=== PATIENT | female | born 1940 | race Caucasian/White ===

== ENCOUNTER 2021-02-21 08:10 | Outpatient (RCR) | payer MEDICARE, MEDICAID, SELFPAY | END 2021-03-16 23:59 | disposition home or self-care (01) | LOC: CHSWOUND 08:10 | PROVIDERS: PCP Family Medicine | DX: L89.620 Pressure ulcer of left heel, unstageable (principal); L89.610 Pressure ulcer of right heel, unstageable; I73.9 Peripheral vascular disease, unspecified; I25.10 Atherosclerotic heart disease of native coronary artery without angina pectoris; I10 Essential (primary) hypertension; D64.9 Anemia, unspecified; J44.9 Chronic obstructive pulmonary disease, unspecified; E78.2 Mixed hyperlipidemia; M81.0 Age-related osteoporosis without current pathological fracture; N28.9 Disorder of kidney and ureter, unspecified; R09.89 Other specified symptoms and signs involving the circulatory and respiratory systems; Z95.1 Presence of aortocoronary bypass graft | CPT/HCPCS: 11042; 87070; 87077; 87186; 87205; 99214; G0463 ==

== ENCOUNTER 2021-02-21 10:14 | Outpatient (CLI) | payer MEDICARE, MEDICAID, SELFPAY ==
--- NOTE | ~2021-02-21 | US_ITS ---
EXAMINATION: US venous doppler LE DATE: 02/21/2021 11:21 INDICATION: Right lower limb nonhealing wounds and edema. Venous reflux. TECHNIQUE: Grayscale ultrasound images without and with compression and Doppler ultrasound images of the bilateral lower extremity veins were obtained. COMPARISON: None. FINDINGS: Right lower limb: The visualized portions of right common femoral vein, profunda (deep) femoral vein, femoral vein, pop liteal vein, posterior tibial veins, peroneal veins, gastrocnemius vein and greater saphenous vein ou tflow are patent. Right standing venous mapping: reflux seconds duration; vein size. Greater saphenous origin: 0 seconds; 7.8 mm. Greater saphenous above knee :---0 seconds; 3.0 mm. Greater saphenous and lesser saphenous veins below the knee were unable to be visualized due to h[place] ging material. Left lower limb: The visualized portions of left common femoral vein, profunda femoral vein, femoral vein, popliteal v ein, posterior tibial veins, peroneal veins, gastrocnemius vein and greater saphenous vein outflow ar e patent. Left standing venous mapping: reflux seconds duration; vein size. Greater saphenous vein not visualized due to reported prior saphenous vein graft harvest. Lesser saphenous proximally:------ 0 seconds; 8.9 mm. Lesser saphenous mid : 0 seconds; 2.0 mm. Lesser saphenous distal : 0 seconds; 2.1 mm. IMPRESSION: 1. No deep venous thrombosis in either lower limb. 2. No evident venous reflux in the right greater saphenous vein at the thigh. The more distal right g reater saphenous vein and lesser saphenous vein at the calf are not visualized due to bandaging mater ial and the left greater saphenous vein has been harvested. Reviewed, dictated and finalized at location H. ARCH LABORATORY MANAGER IMPRESSION: 1. No deep venous thrombosis in either lower limb. 2. No evident venous reflux in the right greater saphenous vein at the thigh. T he more distal right greater saphenous vein and lesser saphenous vein at the ca lf are not visualized due to bandaging material and the left greater saphenous vein has been harvested.
--- NOTE | ~2021-02-21 | XR_ITS ---
XR heel RT min 2V DATE: 02/21/2021 11:31 INDICATION: Nonhealing plantar wounds and edema for 3 months TECHNIQUE: Axial and lateral views COMPARISON: None FINDINGS: There is slight plantar calcaneal enthesopathy. No fracture or dislocation or bone destruction of the calcaneus. No radiopaque soft tissue foreign body or subcutaneous emphysema. IMPRESSION: Slight plantar calcaneal enthesopathy Reviewed, dictated and finalized at location A. GEMENT RECRUITER
--- NOTE | ~2021-02-21 | US_ITS ---
EXAMINATION: US arterial ankle brachial ind DATE: 02/21/2021 11:21 INDICATION: Nonhealing right lower limb movements and edema TECHNIQUE: Segmental pressures and plethysmographic and Doppler waveforms of the brachial and lower e xtremity arteries were obtained. COMPARISON: None. FINDINGS: Right and left brachial artery pressures of 117 mm Hg and 124 mm Hg, respectively, are concordant (no rmal difference <= 30 mmHg). The right ankle-brachial index (REBECCA) is 0.89 (normal >= 0.9-1.0). The right great toe-brachial index (TBI) is 0.81 (normal >= 0.65). Arterial Doppler waveforms are biphasic with brisk systolic upstrokes at the right posterior tibial and dorsalis pedis arteries. The left REBECCA is 0.65. The left TBI is unable to be obtained due to inability to discern a dopplerable pulse at the left toe. Arterial Doppler waveforms demonstrate broadened systolic peaks with delayed upstrokes at both the left posterior tibial and dorsalis pedis arteries. IMPRESSION: 1. Arterial occlusive disease to the bilateral lower limbs with mildly decreased right and moderately decreased left ABIs and with no discernible pulses at the left great toe. Reviewed, dictated and finalized at location H. ICATION PACKAGER IMPRESSION: 1. Arterial occlusive disease to the bilateral lower limbs with mildly decrease d right and moderately decreased left ABIs and with no discernible pulses at th e left great toe.
--- NOTE | ~2021-02-21 | XR_ITS ---
EXAMINATION: XR heel LT min 2V DATE: 02/21/2021 11:31 INDICATION: Nonhealing plantar wounds and erythema. TECHNIQUE: 2 views of left calcaneus were obtained. COMPARISON: None. FINDINGS: Bone alignment is normal. No fracture. Joint spaces are normal. There is an erosion of calc aneal tuberosity. IMPRESSION: 1. Erosion of calcaneal tuberosity, consistent with osteomyelitis. Reviewed, dictated and finalized at location A. ESTATE DEVELOPER
--- NOTE | 2021-02-22 16:03 | WPDWOUNDNOTE ---
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 Wound care nurse contacted office via telephone regarding patient. Bilateral decubitus heel ulcers after prolonged care following COVID infection. Radiographs of the left heel done yesterday concern for possible calcaneal osteomyelitis. Blood flow studies also performed Yesterday show reduced arterial flow bilaterally with left more severe than the right. REBECCA on the left of 0.65. Requesting transferred [facility] for evaluation by Orthopedics and vascular surgery. Explained that vascular surgery not available at [facility]. Wound care nurse verbalized understanding. They are going to look at [place] or [place] for possible vascular surgery referral.
== END 2021-02-21 10:15 | disposition home or self-care (01) ==
PROVIDERS: PCP Family Medicine
DX: L89.620 Pressure ulcer of left heel, unstageable (principal); L89.609 Pressure ulcer of unspecified heel, unspecified stage; R60.9 Edema, unspecified; R09.89 Other specified symptoms and signs involving the circulatory and respiratory systems
CPT/HCPCS: 11042; 73650; 93922; 93970